=== PATIENT | female | born 1950 | race Caucasian/White ===

== ENCOUNTER → 2017-05-11 | Outpatient (CLI) | payer MEDICARE ==
--- NOTE | 2017-05-11 11:44 | Diagnostic Imaging Report ---
INDICATION: Right hip pain. COMPARISON: None. FINDINGS: Two views of right hip demonstrate mild degenerative joint disease. There is no fracture or dislocation. No osseous lesion seen. IMPRESSION: Mild degenerative joint disease. Dictated by: Dictated on workstation # [id number]
--- NOTE | 2017-05-11 11:54 | Diagnostic Imaging Report ---
INDICATION: Fall, back pain COMPARISON: None FINDINGS: 3 views of the lumbar column demonstrate moderate diffuse degenerative disc disease and facet joint arthropathy. There is no traumatic malalignment or fracture. No osseous lesion seen. Diffuse osteopenia is present. IMPRESSION: 1. No traumatic malalignment or fracture 2. Degenerative changes. Dictated by: Dictated on workstation # [id number]
--- NOTE | 2017-05-11 11:58 | Diagnostic Imaging Report ---
PROCEDURE: MR imaging of the brain without contrast. TECHNIQUE: Multiplanar, multisequence MR imaging of the brain was performed without contrast. INDICATION: Fall, temporal region injury, headache. COMPARISON: None. FINDINGS: There is mild age-related cerebral volume loss and chronic small vessel ischemic changes. There is a chronic lacunar infarct in the left basal ganglia region. There is no focus of acute ischemia or hemorrhage. There is no midline shift or mass effect. There is no mass or cerebral edema. Craniocervical junction anatomy appears intact. Vascular flow voids are grossly unremarkable. The visualized orbits, paranasal sinuses and mastoids are normal. IMPRESSION: 1. No acute traumatic injury identified. 2. Mild chronic small vessel ischemic changes and cerebral volume loss. 3. No focus of acute ischemia or hemorrhage. 4. No mass identified. Dictated by: Dictated on workstation # [id number]
== END ==
LOC: RAD 10:49
PROVIDERS: ATTEND Nurse Practitioner Family
DX: S09.90XA Unspecified injury of head, initial encounter (principal); M47.816 Spondylosis without myelopathy or radiculopathy, lumbar region; M25.551 Pain in right hip; W19.XXXA Unspecified fall, initial encounter; Y99.8 Other external cause status
CPT/HCPCS: 70551; 72100; 73502

== ENCOUNTER → 2017-06-08 | Outpatient (CLI) | payer MEDICARE ==
--- NOTE | 2017-06-08 16:19 | Diagnostic Imaging Report ---
EXAMINATION: Three views of the lumbar spine. INDICATION: Chronic back pain. FINDINGS: There is a partially lumbarized S1 vertebral body with a rudimentary disc between S1 and S2. There is grade 1 spondylolisthesis of L4 over L5 and of L5 over S1. The vertebral body heights are preserved. There is mild disc height loss at L4-5. No significant posterior osteophytes are evident. Sclerotic changes at the facet joints are suggestive of degenerative changes. Surgical clips in the upper abdomen and in the pelvis are seen. IMPRESSION: Grade 1 spondylolisthesis of L4-5 and L5-S1 is seen. Please note that there is a transitional lumbosacral junction with a lumbarized S1. Dictated by: Dictated on workstation # [id number]
--- NOTE | 2017-06-08 16:23 | Diagnostic Imaging Report ---
EXAMINATION: Three views of the cervical spine. INDICATION: Chronic neck pain. FINDINGS: There is osseous fusion of the C4 and C5 vertebral bodies which are smaller in AP dimension. This is probably a developmental fusion. Correlate with history. There is minimal anterior translation of C6 over C7. The alignment of the lateral masses of C1 and C2 is satisfactory. There is mild narrowing of the intervertebral disc between the C3 and C4 level as well as at the C5 and C6 level with suggestion of a small posterior osteophyte at C5-6. 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 Degenerative disc changes. Dictated by: Dictated on workstation # [id number]
== END ==
LOC: RAD 14:52
PROVIDERS: ATTEND Nurse Practitioner Family
DX: M43.22 Fusion of spine, cervical region (principal); M50.31 Other cervical disc degeneration, high cervical region
CPT/HCPCS: 72040; 72100

== ENCOUNTER 2021-04-21 13:30 | Emergency (ER) | payer MEDICARE ==
[~2021-04-21] VITALS: Ht 165 cm; Wt 74.8 kg
--- NOTE | 2021-04-21 13:49 | ED General ---
General Stated Complaint: COVID +/CONGESTION/BACK PAIN/WEAKNESS Source of Information: Patient Exam Limitations: No Limitations History of Present Illness Date Seen by Provider: Apr 21, 2021 Time Seen by Provider: 13:49 Initial Comments This is a 71-year-old female who presents to the ER with generalized body weakness, aches, congestion, central chest pain that radiates bilaterally around into her back. She is COVID positive, tested positive 9 days ago. Allergies and Home Medications Allergies Coded Allergies: No Known Drug Allergies (Unverified , 04/21/21) Physical Exam Vital Signs Vital Signs - First Documented 04/21/21 13:40 Temp 36.8 Pulse 67 Resp 18 B/P (MAP) 188/98 (128) Pulse Ox 99 O2 Delivery Room Air Capillary Refill : Height, Weight, BMI Height: '" Weight: lbs. oz. kg; BMI Method: Progress/Results/Core Measures Suspected Sepsis SIRS Temperature: Pulse: Respiratory Rate: Laboratory Tests 04/21/21 14:10: White Blood Count 6.4 Blood Pressure / Mean: Laboratory Tests 04/21/21 14:10: Creatinine 0.85, INR Comment 1.0, Platelet Count 174, Total Bilirubin 1.1H Results/Orders Lab Results Laboratory Tests Test 04/21/21 14:10 Range/Units White Blood Count 6.4 4.3-11.0 10^3/uL Red Blood Count 4.18 3.80-5.11 10^6/uL Hemoglobin 12.3 11.5-16.0 g/dL Hematocrit 37 35-52 % Mean Corpuscular Volume 88 80-99 fL Mean Corpuscular Hemoglobin 29 25-34 pg Mean Corpuscular Hemoglobin Concent 34 32-36 g/dL Red Cell Distribution Width 13.3 10.0-14.5 % Platelet Count 174 130-400 10^3/uL Mean Platelet Volume 9.7 9.0-12.2 fL Immature Granulocyte % (Auto) 1 % Neutrophils (%) (Auto) 69 42-75 % Lymphocytes (%) (Auto) 22 12-44 % Monocytes (%) (Auto) 9 0-12 % Eosinophils (%) (Auto) 0 0-10 % Basophils (%) (Auto) 0 0-10 % Neutrophils # (Auto) 4.4 1.8-7.8 10^3/uL Lymphocytes # (Auto) 1.4 1.0-4.0 10^3/uL Monocytes # (Auto) 0.6 0.0-1.0 10^3/uL Eosinophils # (Auto) 0.0 0.0-0.3 10^3/uL Basophils # (Auto) 0.0 0.0-0.1 10^3/uL Immature Granulocyte # (Auto) 0.0 0.0-0.1 10^3/uL Prothrombin Time 13.6 12.2-14.7 SEC INR Comment 1.0 0.8-1.4 Activated Partial Thromboplast Time 24 24-35 SEC D-Dimer 1.48 H 0.00-0.49 UG/ML Sodium Level 146 H 135-145 MMOL/L Potassium Level 3.2 L 3.6-5.0 MMOL/L Chloride Level 106 98-107 MMOL/L Carbon Dioxide Level 28 21-32 MMOL/L Anion Gap 12 5-14 MMOL/L Blood Urea Nitrogen 14 7-18 MG/DL Creatinine 0.85 0.60-1.30 MG/DL Estimat Glomerular Filtration Rate 66 BUN/Creatinine Ratio 16 Glucose Level 90 70-105 MG/DL Calcium Level 8.5 8.5-10.1 MG/DL Corrected Calcium 8.7 8.5-10.1 MG/DL Magnesium Level 2.1 1.6-2.4 MG/DL Total Bilirubin 1.1 H 0.1-1.0 MG/DL Aspartate Amino Transf (AST/SGOT) 15 5-34 U/L Alanine Aminotransferase (ALT/SGPT) 9 0-55 U/L Alkaline Phosphatase 76 40-136 U/L Myoglobin 52.3 10.0-92.0 NG/ML Troponin I < 0.028 <0.028 NG/ML Total Protein 6.2 L 6.4-8.2 GM/DL Albumin 3.8 3.2-4.5 GM/DL My Orders Orders - SHANTI OLIVIA AGILITY INSTRUCTOR Cbc With Automated Diff (04/21/21 13:57) Magnesium (04/21/21 13:57) Chest 1 View, Ap/Pa Only (04/21/21 13:57) Ekg Tracing (04/21/21 13:57) Comprehensive Metabolic Panel (04/21/21 13:57) Myoglobin Serum (04/21/21 13:57) Protime With Inr (04/21/21 13:57) Partial Thromboplastin Time (04/21/21 13:57) O2 (04/21/21 13:57) Monitor-Rhythm Ecg Trace Only (04/21/21 13:57) Ed Iv/Invasive Line Start (04/21/21 13:57) Troponin I (04/21/21 13:57) Aspirin Chewable Tablet (Baby Aspirin Ch (04/21/21 14:00) Fibrin Degradation Products (04/21/21 14:10) Ct Angio Chest W (04/21/21 15:11) Iohexol Injection (Omnipaque 350 Mg/Ml 1 (04/21/21 16:15) Received Contrast (Hold Metformin- Contr (04/21/21 16:15) Ns (Ivpb) (Sodium Chloride 0.9% Ivpb Bag (04/21/21 16:15) Medications Given in ED Current Medications Medications Dose Ordered Sig/Osmin Route Start Time Stop Time Status Last Admin Dose Admin Aspirin 324 mg ONCE ONCE PO 04/21/21 14:00 04/21/21 14:01 DC 04/21/21 14:06 324 MG Iohexol 75 ml ONCE ONCE IV 04/21/21 16:15 04/21/21 16:30 DC 04/21/21 16:35 75 ML Sodium Chloride 100 ml ONCE ONCE IV 04/21/21 16:15 04/21/21 16:30 DC 04/21/21 16:35 100 ML Vital Signs/I&O 04/21/21 04/21/21 13:40 14:19 Temp 36.8 Pulse 67 Resp 18 B/P (MAP) 188/98 (128) Pulse Ox 99 O2 Delivery Room Air Room Air Capillary Refill : Diagnostic Imaging Diagonstic Imaging: Xray Comments [facility], [place], [place] NAME: JEY FARIAS [facility] REC#: [id number] PT STATUS: REG ER : 1950 PHYSICIAN: SHANTI OLIVIA APRN ADMIT DATE: 04/21/21/ER Draft Date of Exam:04/21/21 CHEST 1 VIEW, AP/PA ONLY INDICATION: Chest pain. TIME OF EXAM: 2:44 PM Heart is not enlarged. Lungs are clear. There is no infiltrates. No effusion or pneumothorax is identified. IMPRESSION: No acute cardiopulmonary process is detected. Dictated on workstation # [id number] Dict: 04/21/21 1454 Trans: 04/21/21 1459 CV [id number] Interpreted by: COREY ENGLE MD Electronically signed by: Reviewed: Reviewed by Me Departure Impression Primary Impression: COVID-19 Disposition: 01 HOME, SELF-CARE Condition: Improved Departure-Patient Inst. Decision time for Depature: 17:06 Referrals: PAUL AQUINO MD (PCP/Family) Primary Care Physician Patient Instructions: COVID-19 ED Add. Discharge Instructions: Plan: 1. Rest. Drink plenty of fluids. You can take over the counter B-complex vitamin and vitamin C to see if this will help improve your energy. 2. Return to ER if you develop and new, concerning, or worsening symptoms. SHANTI OLIVIA AGILITY INSTRUCTOR Apr 21, 2021 13:49
[2021-04-21] MEDS ORDERED: ASPIRIN 81 MG CHEW (CHILDREN'S ASA) PO ONE (14:00)
[2021-04-21 14:27] LABS: BASOPHILS % (AUTO) 0 % (0-10); EOSINOPHILS % (AUTO) 0 % (0-10); HEMATOCRIT 37 % (35-52); HEMOGLOBIN 12.3 g/dL (11.5-16.0); LYMPHOCYTES # (AUTO) 1.4 10^3/uL (1.0-4.0); LYMPHOCYTES % (AUTO) 22 % (12-44); MEAN CORPUSCULAR HEMOGLOBIN 29 pg (25-34); MEAN CORPUSCULAR HGB CONC 34 g/dL (32-36); MEAN CORPUSCULAR VOLUME 88 fL (80-99); MEAN PLATELET VOLUME 9.7 fL (9.0-12.2); MONOCYTES # (AUTO) 0.6 10^3/uL (0.0-1.0); MONOCYTES % (AUTO) 9 % (0-12); NEUTROPHILS # (AUTO) 4.4 10^3/uL (1.8-7.8); NEUTROPHILS % (AUTO) 69 % (42-75); PLATELET COUNT 174 10^3/uL (130-400); WHITE BLOOD COUNT 6.4 10^3/uL (4.3-11.0)
[2021-04-21 14:37] LABS: ALBUMIN 3.8 GM/DL (3.2-4.5); POTASSIUM 3.2 MMOL/L (3.6-5.0)
[2021-04-21 14:39] LABS: CALCIUM 8.5 MG/DL (8.5-10.1)
[2021-04-21 14:40] LABS: TOTAL PROTEIN 6.2 GM/DL (6.4-8.2)
[2021-04-21 14:41] LABS: FIBRIN DEGRADATION PRODUCTS 1.48 UG/ML (0.00-0.49); PROTHROMBIN TIME PATIENT 13.6 SEC (12.2-14.7)
[2021-04-21 14:42] LABS: BILIRUBIN,TOTAL 1.1 MG/DL (0.1-1.0)
[2021-04-21 14:44] LABS: CREATININE SERUM 0.85 MG/DL (0.60-1.30)
[2021-04-21 14:47] LABS: MAGNESIUM 2.1 MG/DL (1.6-2.4)
--- NOTE | 2021-04-21 14:59 | Diagnostic Imaging Report ---
INDICATION: Chest pain. TIME OF EXAM: 2:44 PM Heart is not enlarged. Lungs are clear. There is no infiltrates. No effusion or pneumothorax is identified. IMPRESSION: No acute cardiopulmonary process is detected. Dictated by: Dictated on workstation # [id number]
[2021-04-21] MEDS ORDERED: HOLD METFORMIN - RECEIVED CONTRAST 20 ML VIAL IV SCH (16:15)
[2021-04-21] MEDS ORDERED: NS 100 ML (IVPB) BAG IV ONE (16:15)
[2021-04-21] MEDS ORDERED: IOHEXOL 350 MG/ML 100 ML (OMNIPAQUE 350) VIAL IV ONE (16:15)
--- NOTE | 2021-04-21 16:49 | Diagnostic Imaging Report ---
PROCEDURE: CT angiography of the chest with contrast. TECHNIQUE: Multiple contiguous axial images were obtained through the chest after uneventful bolus administration of intravenous contrast. 3D reconstructed CTA MIP acquisitions were also performed. Auto Exposure Controls were utilized during the CT exam to meet ALARA standards for radiation dose reduction. INDICATION: Chest pain and congestion with elevated d-dimer. FINDINGS: Evaluation of the pulmonary arterial system is without evidence of thromboembolism. No filling defect is seen within the central, lobar or segmental pulmonary arterial branches. Thoracic aorta is without evidence of dissection. There is no pericardial or pleural fluid. Some minimal atelectasis in the lingula and lower lobes. No infiltrate or mass is seen. Upper abdomen shows postsurgical changes to the stomach. IMPRESSION: No evidence of pulmonary embolism or thoracic aortic dissection. Dictated by: Dictated on workstation # [id number]
[2021-04-21 17:16] VITALS: BP 147/88
== END 2021-04-21 17:18 | disposition home or self-care (01) ==
LOC: EDUNIT# 13:30 → ER 13:32
DX: U07.1 COVID-19 (principal)
CPT/HCPCS: 36415; 71045; 71275; 80053; 83735; 83874; 84484; 85025; 85379; 85610; 85730; 93005; 93041